=== PATIENT | female | born 1995 ===

== ENCOUNTER 2022-04-25 07:39 | Day surgery (SDC) | payer OTHER ==
[2022-04-25 08:00] VITALS: BMI 40.6
[2022-04-25] MEDS ORDERED: hydrALAZINE 20 MG/ML VIAL SLOW IVP PRN (08:35)
[2022-04-25 09:23] LABS: Glucose POC Confirmation 79 mg/dL (70-105)
== END 2022-04-25 11:35 | disposition home or self-care (01) ==
LOC: CSHLD/OP 07:39
PROVIDERS: ATTEND Obstetrics & Gynecology
DX: O24.113 Pre-existing type 2 diabetes mellitus, in pregnancy, third trimester (principal); O36.8130 Decreased fetal movements, third trimester, not applicable or unspecified; Z79.4 Long term (current) use of insulin; Z3A.37 37 weeks gestation of pregnancy; Z79.899 Other long term (current) drug therapy
CPT/HCPCS: 36415; 36416; 76819; 82947; 99282